=== PATIENT | female | born 1990 | race American Indian/Alaskan Native ===

== ENCOUNTER 2018-03-15 06:07 | Emergency (ER) | payer MEDICAID, OTHER ==
--- NOTE | 2018-03-15 07:27 | ED PDOC ---
Arrival/HPI - General Historian: Patient - History of Present Illness Symptom Onset: Gradual Symptom Course: Unchanged <Nereida Ramirez - Last Filed: 03/15/18 08:52> <Gold Aranda DO - Last Filed: 03/16/18 07:56> - General Chief Complaint: Cough, Cold, Congestion Time Seen by Provider: 03/15/18 07:06 - History of Present Illness Narrative History of Present Illness (Text): 27 year old female with no relevant PMH presents with a 2 day history of a 101 fever and a 4 day history of productive cough with green-yellow sputum with occasional streaks of blood. She reports having taken Nyquil and Theraflu at home that did not improve her symptoms. She also complained of a frontal sinus headache that also started 4 days ago that relieved with Alleve. When she coughs , she reports a sharp pain in her chest that is reproducible on palpation. She reports excessive sweating at night and reports she generally does not sweat. She does not report any weight loss. 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 03/15/18 07:23 03/15/18 07:27 03/15/18 07:28 (Nereida Ramirez) Past Medical History - Provider Review Nursing Documentation Reviewed: Yes - Travel History Have you recently traveled outside [place] w/in the past 3 mons?: No - Psychiatric Hx Substance Use: No <Nereida Ramirez - Last Filed: 03/15/18 08:52> Family/Social History - Physician Review Nursing Documentation Reviewed: Yes Family/Social History: No Known Family HX Smoking Status: Never Smoked Hx Alcohol Use: Yes Frequency of alcohol use: Socially Hx Substance Use: No <Nereida Ramirez - Last Filed: 03/15/18 08:52> Allergies/Home Meds <Nereida Ramirez - Last Filed: 03/15/18 08:52> <Gold Aranda DO - Last Filed: 03/16/18 07:56> Allergies/Adverse Reactions: Allergies No Known Allergies Allergy (Verified 03/15/18 06:19) Review of Systems - Physician Review All systems were reviewed & negative as marked: Yes - Review of Systems Constitutional: Normal, Fevers, Other (moderate sweating at nighttime) Eyes: Normal ENT: Normal Respiratory: SOB, Cough, Sputum Cardiovascular: Chest Pain Gastrointestinal: Normal Musculoskeletal: Normal Skin: Normal Neurological: Headache (pressure) Psychiatric: Normal <Nereida Ramirez - Last Filed: 03/15/18 08:52> Physical Exam Temperature: Afebrile Blood Pressure: Normal Pulse: Regular Respiratory Rate: Normal Appearance: Positive for: Well-Appearing Pain Distress: None Mental Status: Positive for: Alert and Oriented X 3 - Systems Exam Head: Present: Atraumatic, Normocephalic Pupils: Present: PERRL Extroacular Muscles: Present: EOMI Conjunctiva: Present: Normal Mouth: Present: Moist Mucous Membranes Pharnyx: Present: Normal, Muffled/Hoarse Voice Nose (External): Present: Atraumatic Nose (Internal): Present: Edematous, Boggy Neck: Present: Normal Range of Motion Respiratory/Chest: Present: Rhonchi Cardiovascular: Present: Regular Rate and Rhythm, Normal S1, S2 Abdomen: Present: Normal Bowel Sounds Upper Extremity: Present: Normal Inspection, Normal ROM Lower Extremity: Present: Normal Inspection, Normal ROM Neurological: Present: GCS=15, CN II-XII Intact, Speech Normal Skin: Present: Warm, Dry, Normal Color Psychiatric: Present: Alert, Oriented x 3, Normal Insight, Normal Concentration <Nereida Ramirez - Last Filed: 03/15/18 08:52> <Gold Aranda DO - Last Filed: 03/16/18 07:56> Vital Signs Temp Pulse Resp BP Pulse Ox 03/15/18 08:50 98.1 F 18 99 03/15/18 07:32 98.0 F 73 18 115/63 98 03/15/18 06:49 82 20 95 Medical Decision Making - RAD Interpretation Fulfillment Associate: Radiologist <Nereida Ramirez - Last Filed: 03/15/18 08:52> <Gold Aranda DO - Last Filed: 03/16/18 07:56> ED Course and Treatment: Impression: 27 year old Female presents with fever of 101 and productive cough with green-yellow sputum with occasional red tinge. Assessment: Bronchitis vs. Pneumonia vs. Sinusitis Plan: Chest X ray to be done to differentiate what the cause of her potential infection is. If CAP, can start ceftriaxone and azithromycin. If Bronchitis, can start supportive therapy. If Sinusitis, can start amoxicillin-clavulinate. 03/15/18 08:09 03/15/18 08:46 Chest X ray came back negative for pneumonia or bronchitis. We will prescribe Augmentin 875 mg /125 mg PO BID for 7 days for supposed sinusitis and discharge. (Nereida Ramirez) A 27 year old female with fever and a productive cough. In agreement with resident note, which includes further HPI details. Patient was seen and evaluated with resident, came up with plan and treatment together. (Gold Aranda DO) - RAD Interpretation Narrative RAD Interpretations (Text): CXR: No active pulmonary disease. 03/15/18 08:48 (Nereida Ramirez) Radiology Orders: 03/15/18 07:34 CHEST TWO VIEWS (PA/LAT) [RAD] Stat - EKG Interpretation EKG Interpretation (Text): Sinus bradycardia. Heart rate: 58 RI: 156 QRS: 96 QTc: 398 03/15/18 08:50 03/15/18 08:52 (Nereida Ramirez) - PA / REGULATORY AFFAIRS ANALYST / Resident Statement LATIA has reviewed & agrees with the documentation as recorded. / has examined the patient and agrees with the treatment plan. <Nereida Ramirez - Last Filed: 03/15/18 08:52> - Scribe Statement The provider has reviewed the documentation as recorded by the Scribe <Gold Aranda DO - Last Filed: 03/16/18 07:56> - Scribe Statement Juliana Cosme Provider Scribe Attestation: All medical record entries made by the Scribe were at my direction and personally dictated by me. I have reviewed the chart and agree that the record accurately reflects my personal performance of the history, physical exam, medical decision making, and the department course for this patient. I have also personally directed, reviewed, and agree with the discharge instructions and disposition. (Gold Aranda DO) Disposition/Present on Arrival - Present on Arrival Any Indicators Present on Arrival: No History of DVT/PE: No History of Uncontrolled Diabetes: No Urinary Catheter: No History of Decub. Ulcer: No History Surgical Site Infection Following: None - Disposition Have Diagnosis and Disposition been Completed?: Yes Disposition Time: 08:16 <Nereida Ramirez - Last Filed: 03/15/18 08:52> <Manoj CASTROGold - Last Filed: 03/16/18 07:56> - Disposition Diagnosis: Sinusitis Disposition: HOME/ ROUTINE Condition: GOOD Discharge Instructions (ExitCare): Sinusitis, Adult (DC) Additional Instructions: GEOVANNA MILLER, thank you for letting us take care of you today. Your provider was Gold Aranda DO and you were treated for SORE THROAT/COUGH/ CONGESTION. The emergency medical care you received today was directed at your acute symptoms. If you were prescribed any medication, please fill it and take as directed. It may take several days for your symptoms to resolve. Return to the Emergency Department if your symptoms worsen, do not improve, or if you have any other problems. Please contact your doctor or call one of the physicians/clinics you have been referred to that are listed on the Patient Visit Information form that is included in your discharge packet. Bring any paperwork you were given at discharge with you along with any medications you are taking to your follow up visit. Our treatment cannot replace ongoing medical care by a primary care provider outside of the emergency department. Thank you for allowing the [facility] team to be part of your care today. Follow up with your primary care doctor in 2-3 days for re-evaluation and further management. Prescriptions: Amoxicillin/Clavulanate [Augmentin 875 MG-125 MG] 1 tab PO BID #14 tab Ibuprofen [Motrin] 600 mg PO Q6 PRN #20 tab PRN Reason: Pain, Moderate (4-7) Referrals: [facility] Diane Mckeon, [Non-Staff] - Follow up with primary Forms: [employer] (Persian)
[2018-03-15 07:33] VITALS: BP 115/63; PULSE 73; RESP 18
[2018-03-15 08:51] VITALS: TEMP 98.1; O2SAT 99
--- NOTE | 2018-03-15 10:12 | CARD ---
APPROVED REPORT EKG Measurement Heart [id number] <Conclusion> Sinus bradycardia Normal ECG
== END 2018-03-15 08:51 | disposition home or self-care (01) ==
LOC: ED 06:07
DX: J32.9 Chronic sinusitis, unspecified (principal)

== ENCOUNTER 2018-06-14 06:08 | Emergency (ER) | payer MEDICAID, OTHER ==
[2018-06-14 06:17] VITALS: BMI 39.4
[2018-06-14 06:25] VITALS: RESP 18
--- NOTE | 2018-06-14 07:06 | ED PDOC ---
Arrival/HPI - General Chief Complaint: Abnormal Skin Integrity Time Seen by Provider: 06/14/18 06:57 Historian: Patient - History of Present Illness Time/Duration: Other (3 weeks) Symptom Onset: Gradual Symptom Course: Improving Quality: Aching Severity Level: Mild Associated Symptoms (Text): 06/14/18 07:03 Patient complains of approximately a 3 week history of a left axillary abscess. It is open on its own and is draining on its own. No fever or chills. Past Medical History - Psychiatric Hx Substance Use: No Family/Social History - Physician Review Nursing Documentation Reviewed: Yes Family/Social History: Unknown Family HX Smoking Status: Never Smoked Hx Alcohol Use: Yes Frequency of alcohol use: Socially Hx Substance Use: No Allergies/Home Meds Allergies/Adverse Reactions: Allergies No Known Allergies Allergy (Verified 06/14/18 06:23) Home Medications: Home Meds Medication Instructions Recorded Confirmed No Known Home Med 06/14/18 06/14/18 Review of Systems - Physician Review All systems were reviewed & negative as marked: Yes Physical Exam Vital Signs Temp Pulse Resp BP Pulse Ox 06/14/18 06:24 98.1 F 61 18 110/57 L 97 Temperature: Afebrile Blood Pressure: Normal Pulse: Regular Respiratory Rate: Normal Appearance: Positive for: Well-Appearing, Non-Toxic, Comfortable Pain Distress: None Mental Status: Positive for: Alert and Oriented X 3 - Systems Exam Upper Extremity: Present: Normal Inspection, Normal ROM, NORMAL PULSES, Tenderness, Neurovascularly Intact, Other (Approximately 0.5 cm self draining left axillary abscess). No: Cyanosis, Edema, Swelling, Erythema, Deformity Skin: Present: Warm, Dry, Normal Color, Abscess (Abscess as above). No: Rashes Medical Decision Making ED Course and Treatment: 06/14/18 07:04 Incidental finding is hCG positive. Patient was instructed to follow-up with her RECEIVING SUPERVISOR as soon as possible. Only Tylenol for the pain. Sterile dressing. No need for antibiotics. Follow-up with PMD. Follow up in ER as needed. Disposition/Present on Arrival - Present on Arrival Any Indicators Present on Arrival: No History of DVT/PE: No History of Uncontrolled Diabetes: No Urinary Catheter: No History of Decub. Ulcer: No History Surgical Site Infection Following: None - Disposition Have Diagnosis and Disposition been Completed?: Yes Diagnosis: Abscess, Positive test Disposition: HOME/ ROUTINE Disposition Time: 07:05 Patient Plan: Discharge Condition: GOOD Discharge Instructions (ExitCare): Skin Abscess, Tests Additional Instructions: Keep clean and dry. Follow-up with PMD and RECEIVING SUPERVISOR. Follow up in ER as needed. Tylenol for the pain. Referrals: Katlin Unger RN [Primary Care Provider] - Follow up with primary
[2018-06-14 07:18] VITALS: BP 112/60; PULSE 62; TEMP 98; O2SAT 100
== END 2018-06-14 07:18 | disposition home or self-care (01) ==
LOC: ED 06:08
DX: L02.412 Cutaneous abscess of left axilla (principal); Z32.01 Encounter for pregnancy test, result positive

== ENCOUNTER 2018-08-01 06:09 | Emergency (ER) | payer MEDICAID ==
[2018-08-01 06:09] VITALS: BMI 39.4
[2018-08-01 06:20] VITALS: TEMP 97.5
--- NOTE | 2018-08-01 07:23 | ED PDOC ---
Arrival/HPI - General Chief Complaint: Upper Extremity Problem/Injury Time Seen by Provider: 08/01/18 07:03 Historian: Patient - History of Present Illness Narrative History of Present Illness (Text): 08/01/18 07:20 A 27 year old female, with no significant past medical history, presents to the emergency department complaining of left upper back pain and productive cough for the past 2 weeks. Patient reports she was seen in the emergency department for similar symptoms and was told she has bronchitis. States she has been taking her medications but for some reason the symptoms will not go away. Notes pain to be left upper back under scapula, worsens with movement/breathing. Patient notes also experiencing some chills, however denies any fever, shortness of breath, chest pain, or any other complaints at this time. Denies any history of substance/EtOH abuse. PMD: Dr. Katlin Unger Time/Duration: Other (2 weeks) Symptom Onset: Sudden Symptom Course: Unchanged Past Medical History - Provider Review Nursing Documentation Reviewed: Yes - Infectious Disease Hx of Infectious Diseases: None - Psychiatric Hx Substance Use: No - Anesthesia Hx Anesthesia: No Family/Social History - Physician Review Nursing Documentation Reviewed: Yes Family/Social History: No Known Family HX Smoking Status: Never Smoked Hx Alcohol Use: Yes Hx Substance Use: No Allergies/Home Meds Allergies/Adverse Reactions: Allergies No Known Allergies Allergy (Verified 08/01/18 06:15) Review of Systems - Physician Review All systems were reviewed & negative as marked: Yes - Review of Systems Constitutional: Night Sweats. absent: Fevers Respiratory: Cough (productive). absent: SOB Cardiovascular: absent: Chest Pain Musculoskeletal: Back Pain (left upper region, worsens with movement/breathing.) Physical Exam Vital Signs Reviewed: Yes Vital Signs Temp Pulse Resp BP Pulse Ox 08/01/18 06:16 97.5 F L 65 20 144/77 100 Temperature: Afebrile Blood Pressure: Normal Pulse: Regular Respiratory Rate: Normal Appearance: Positive for: Well-Appearing, Non-Toxic, Comfortable Pain Distress: None Mental Status: Positive for: Alert and Oriented X 3 - Systems Exam Head: Present: Atraumatic, Normocephalic Pupils: Present: PERRL Extroacular Muscles: Present: EOMI Conjunctiva: Present: Normal Mouth: Present: Moist Mucous Membranes Neck: Present: Normal Range of Motion Respiratory/Chest: Present: Clear to Auscultation (bilaterally), Good Air Exchange. No: Respiratory Distress, Accessory Muscle Use Cardiovascular: Present: Regular Rate and Rhythm, Normal S1, S2. No: Murmurs Abdomen: No: Tenderness, Distention, Peritoneal Signs Back: Present: Other (left upper back tenderness.) Upper Extremity: Present: Normal Inspection. No: Cyanosis, Edema Lower Extremity: Present: Normal Inspection. No: Edema Neurological: Present: GCS=15, CN II-XII Intact, Speech Normal Skin: Present: Warm, Dry, Normal Color. No: Rashes Psychiatric: Present: Alert, Oriented x 3, Normal Insight, Normal Concentration Medical Decision Making ED Course and Treatment: 08/01/18 07:22 Impression: 27 year old female with left upper back pain that worsens with movement/breathing, and productive cough. Physical exam shows left upper back tenderness; no other acute findings on examination. Differential Diagnosis included but are not limited to: Musculoskeletal vs. Pneumonia. Plan: -- Chest X-ray -- Tylenol -- Valium -- Urinalysis -- Reassess and disposition Progress Notes: 08/01/2018 08:44 Chest X-ray IMPRESSION: No active pulmonary disease. Dictator: Abby Bacon MD The pt is feeling better and chest x-ray is negative. Pt can be discharged home. - Scribe Statement The provider has reviewed the documentation as recorded by the Ximena Butler Provider Scribe Attestation: All medical record entries made by the Scribe were at my direction and personally dictated by me. I have reviewed the chart and agree that the record accurately reflects my personal performance of the history, physical exam, medical decision making, and the department course for this patient. I have also personally directed, reviewed, and agree with the discharge instructions and disposition. Disposition/Present on Arrival - Present on Arrival Any Indicators Present on Arrival: No History of DVT/PE: No History of Uncontrolled Diabetes: No Urinary Catheter: No History of Decub. Ulcer: No History Surgical Site Infection Following: None - Disposition Have Diagnosis and Disposition been Completed?: Yes Diagnosis: Upper back pain on left side Disposition: HOME/ ROUTINE Disposition Time: 09:19 Patient Plan: Discharge Condition: GOOD Discharge Instructions (ExitCare): Upper Back Pain (DC) Prescriptions: Cyclobenzaprine [Cyclobenzaprine HCl] 10 mg PO Q8 5 Days #15 tab Ibuprofen [Motrin] 600 mg PO Q6 5 Days #20 tab Referrals: Katlin Unger, RN [Primary Care Provider] - Follow up with primary Forms: [employer] (Ukrainian)
--- NOTE | 2018-08-01 08:47 | RAD ---
Date of service: 08/01/2018 HISTORY: Cough and back pain COMPARISON: 03/15/2018 TECHNIQUE: Chest PA and lateral FINDINGS: LINES AND TUBES: None. LUNG AND PLEURA: The lungs are well inflated and clear. No pleural effusion or pneumothorax. HEART AND MEDIASTINUM: The heart is not enlarged. No aortic atherosclerotic calcification present. The hilar and mediastinal contours are within normal limits. SKELETAL STRUCTURES: The bony structures are within normal limits for the patient's age. VISUALIZED UPPER ABDOMEN: Normal. OTHER FINDINGS: None. IMPRESSION: No active pulmonary disease.
[2018-08-01 09:43] VITALS: BP 134/80; PULSE 68; RESP 18; O2SAT 99
== END 2018-08-01 09:45 | disposition home or self-care (01) ==
LOC: ED 06:09
DX: M54.6 Pain in thoracic spine (principal)